=== PATIENT | male | born 1970 | race Caucasian/White ===

== ENCOUNTER 2020-02-02 20:43 | Emergency (ER) | payer OTHER ==
[~2020-02-02] VITALS: Ht 152.4 cm; Wt 68.0 kg
[2020-02-02 20:50] VITALS: BP_SYST 148
[2020-02-02] MEDS ORDERED: LIDOCAINE 2%, 20 ML MDV ONE (21:14)
[2020-02-02] MEDS ORDERED: BACITRACIN 1 GM OINT TP ONE (21:14)
[2020-02-02] MEDS ORDERED: LIDOCAINE 1% 10 MG/ML, 20 ML MDV INJ ONE (21:30)
[2020-02-02] MEDS ORDERED: DIPH-TET-PERTUS Vaccine 0.5 ML VIAL (ADACEL) I.M. ONE (21:30)
[2020-02-02] MEDS ORDERED: LIDOCAINE 1%, 20 ML MDV 20 ML ONE (21:32)
[2020-02-03] MEDS ORDERED: ceFAZolin SODIUM 1 GM VIAL IM ONE (00:15)
[2020-02-03] MEDS ORDERED: HYDROcodone/ACETAMIN 10-325 MG TAB PO ONE (01:00)
[2020-02-03 02:23] VITALS: BP_SYST 140
== END 2020-02-03 02:23 | disposition short-term general hospital (02) ==
LOC: SED 20:43 → EDBD 20:43 → SED 02-03 02:23
DX: S61.012A Laceration without foreign body of left thumb without damage to nail, initial encounter (principal); W31.2XXA Contact with powered woodworking and forming machines, initial encounter; Y93.89 Activity, other specified; Y92.098 Other place in other non-institutional residence as the place of occurrence of the external cause; Y99.8 Other external cause status
CPT/HCPCS: 12001; 73130; 90471; 90715; 96372; 99285; J0690; J2001 ×2; 99284

== ENCOUNTER 2020-02-04 14:02 | Emergency (ER) | payer OTHER ==
[~2020-02-04] VITALS: Ht 162.6 cm; Wt 69.4 kg
[2020-02-04 14:25] VITALS: BP_SYST 124
[2020-02-04 15:13] VITALS: BP_SYST 124
== END 2020-02-04 14:51 | disposition home or self-care (01) ==
LOC: SED 14:02
DX: S61.012D Laceration without foreign body of left thumb without damage to nail, subsequent encounter (principal); X58.XXXD Exposure to other specified factors, subsequent encounter
CPT/HCPCS: 99282

== ENCOUNTER 2020-02-12 11:57 | Emergency (ER) | payer OTHER ==
[~2020-02-12] VITALS: Ht 167.6 cm; Wt 65.8 kg
[2020-02-12 12:00] VITALS: BP_SYST 106
[2020-02-12] MEDS ORDERED: BACITRACIN 1 GM OINT TP ONE (13:28)
[2020-02-12 13:46] VITALS: BP_SYST 106
== END 2020-02-12 13:46 | disposition home or self-care (01) ==
LOC: SED 11:57
DX: Z48.02 Encounter for removal of sutures (principal)
CPT/HCPCS: 99281